=== PATIENT | male | born 1960 | race Caucasian/White ===

== ENCOUNTER 2016-11-22 10:16 | Outpatient (CLI) | payer OTHER ==
[~2016-11-22] VITALS: Ht 180.3 cm; Wt 104.3 kg
[2016-11-22] MEDS ORDERED: BUPIVACAINE 0.5% 30 ML (SENSORCAINE) VIAL ONE (10:21)
[2016-11-22] MEDS ORDERED: TRIAMCINOLONE ACET (KENALOG-40) 40 MG/ML 1 ML VIAL ONE (10:21)
[2016-11-22] MEDS ORDERED: LIDOCAINE 1% INJ 20 ML (XYLOCAINE) VIAL ONE (10:21)
[2016-11-22 10:36] VITALS: BP 161/112
[2016-11-22 11:14] VITALS: BP 152/102
--- NOTE | 2016-11-22 12:46 | Pain Medicine-Procedure ---
Procedure Pre-Op/Post-Op Diagnosis Diagnosis: spondylosis without myelopathy, lumbar Indications for Operation Low back pain Attending Surgeon Nils Procedure Date of Service: Nov 22, 2016 PROCEDURE: Bilateral lumbar medial branch block at L3,L4, L5 and sacral ala under fluoroscopic guidance. PROCEDURE DETAILS: After obtaining an informed consent from the patient, the patient's chart was reviewed. The patient was brought to the procedure room and placed in a prone position. The back was prepped with antiseptic solution, and under fluoroscopic guidance the sacral ala was identified bilaterally. 0.5 cc of 1% Lidocaine to anesthetize the skin. Two 22 gauge 3.5 inch spinal needles were inserted under fluoroscopic guidance until it got in touch with the bone at the sacral ala bilaterally. Then under right oblique fluoroscopy, the junction of the superior articular process and transverse process on the right at L3, L4, and L5 was identified. 0.5 cc of 1% Lidocaine was used to anesthetize the skin. A 22 gauge 3.5 inch spinal needle was inserted through the skin under fluoroscopic guidance until it came in touch with the bone at the junction between the superior articular process and transverse process at each level. The exact steps were repeated for the left side. After needle aspiration,80 mg of kenalog total was injected in equal alliquots followed by 0.5 cc of 0.5% bupivacaine at each. The patient tolerated the procedure well. The needles were flushed and removed, and a Band-Aide was applied. Complications None RENEA BRADSHAW MD Nov 22, 2016 12:46 pm
== END 2016-11-22 11:16 | disposition home or self-care (01) ==
LOC: CARD 10:16
PROVIDERS: ATTEND Pain Medicine Pain Medicine
DX: M47.816 Spondylosis without myelopathy or radiculopathy, lumbar region (principal); G89.4 Chronic pain syndrome; M47.814 Spondylosis without myelopathy or radiculopathy, thoracic region; Z79.899 Other long term (current) drug therapy
CPT/HCPCS: 64493; 64494; 64495

== ENCOUNTER → 2022-08-22 | Outpatient (CLI) | payer OTHER, MEDICARE ==
--- NOTE | 2022-08-22 10:38 | Diagnostic Imaging Report ---
INDICATION: Lower back pain. COMPARISON: None FINDINGS: Frontal and lateral radiographic views of the lumbar spine were also obtained. Flexion and extension views were also provided in the lateral projection. Alignment of the lumbar spine is maintained. There is no significant anterolisthesis or retrolisthesis. There is no evidence of jumped facets. Vertebral body heights are maintained as well. There is no evidence of acute fracture. Intervertebral disc heights are fairly well-maintained. There is mild multilevel facet arthropathy. IMPRESSION: 1. Unremarkable radiographic exam of the lumbar spine. Dictated by: Dictated on workstation # [id number]
--- NOTE | 2022-08-22 10:47 | Diagnostic Imaging Report ---
PROCEDURE: MRI lumbar spine. TECHNIQUE: Multiplanar, multisequence MRI of the lumbar spine was performed without contrast. INDICATION: Chronic low back pain Lumbar spine MRI without contrast 08/22/2022 FINDINGS: There is normal height and alignment of the vertebral bodies. Tip of the conus unremarkable in appearance and location. L1-L2: Unremarkable. L2-L3: There is bilateral facet and ligamentum flavum hypertrophy. There is no central stenosis. There is moderate bilateral neural foraminal narrowing. L3-L4: There is disc desiccation with a right paracentral broad-based bulging disc. There is bilateral facet and ligament flavum hypertrophy. There is secondary mild central stenosis. There is moderate left and severe right neural foraminal narrowing. L4-L5: There is disc desiccation with a broad-based bulging disc containing an annular tear. There is bilateral facet and ligamentum flavum hypertrophy. There is minimal central narrowing with narrowing of the left lateral recess. There is moderate bilateral neural foraminal stenosis. L5-S1: There is bilateral facet and ligamentum flavum hypertrophy. There is minimal central disc protrusion. There is no significant central stenosis. There is mild narrowing of the lateral recesses bilaterally. There is mild bilateral neural foraminal narrowing. Within the visualized intra-abdominal structures there is an incompletely imaged large exophytic cystic lesion emanating from the left kidney. This measures at least 13.5 cm in craniocaudal dimension. IMPRESSION: 1. Multilevel degenerative findings as detailed above with no significant central stenosis appreciated. There is moderate to severe neural foraminal narrowing as noted. 2. Incompletely imaged large cystic lesion left kidney. Dedicated imaging recommended. Dictated by: Dictated on workstation # [id number]
== END ==
LOC: RAD 09:17
PROVIDERS: ATTEND Pain Medicine Interventional Pain Medicine
DX: M47.26 Other spondylosis with radiculopathy, lumbar region (principal); M47.817 Spondylosis without myelopathy or radiculopathy, lumbosacral region; M51.16 Intervertebral disc disorders with radiculopathy, lumbar region; M48.061 Spinal stenosis, lumbar region without neurogenic claudication; M48.07 Spinal stenosis, lumbosacral region
CPT/HCPCS: 72110; 72148